=== PATIENT | male | born 2000 | race Caucasian/White ===

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

== ENCOUNTER → 2024-02-17 16:35 | Outpatient (CLI) | payer OTHER, SELFPAY ==
--- NOTE | 2024-02-17 | DI.RAD.S_ITS ---
PROCEDURE: XR ANKLE LT 2V INDICATIONS: Unspecified fracture of left talus, initial encounter for cl TECHNIQUE: New 2 views of the ankle were acquired. COMPARISON: None. FINDINGS: Bones: Postsurgical changes from ORIF of the distal left fibula with lateral plate and screw fixation. Normal postsurgical alignment. No evidence for hardware loosening or failure. No acute fracture seen. Ankle mortise appears intact. Faint lucency over the posterior margin of the calcaneus likely artifactual. Minimal degenerative changes of the dorsal left midfoot. Soft tissues: No tibiotalar joint effusion. Achilles tendon appears normal. IMPRESSION: Left ankle without acute fracture or dislocation. Status post open reduction and internal fixation of the distal fibula without evidence for hardware complication. Minimal dorsal left foot degenerative change. Subtle lucency of the posterior margin of the calcaneus likely related to summation artifact of bony trabeculation. However, recommend correlation with physical examination to exclude point tenderness in this region. If there is persistent clinical concern for fracture of the talus, further evaluation with dedicated foot radiographic series can be considered. Dictated by: Trent Wang M.D. on 02/17/2024 at 23:29 Approved by: Trent Wang M.D. on 02/17/2024 at 23:32
== END ==
PROVIDERS: Referring Provider Chiropractor; Visit Provider Chiropractor
DX: S92.102A Unspecified fracture of left talus, initial encounter for closed fracture (principal); S82.832S Other fracture of upper and lower end of left fibula, sequela; X58.XXXA Exposure to other specified factors, initial encounter
CPT/HCPCS: 73600